=== PATIENT | male | born 1995 | race Caucasian/White ===

== ENCOUNTER 2023-11-26 17:35 | Emergency (ER) | payer OTHER ==
[~2023-11-26] VITALS: Ht 180.3 cm; Wt 72.6 kg
[2023-11-26 18:20] VITALS: BP 121/84
[2023-11-26] MEDS ORDERED: Diphth,Pertuss(Acell),Tet Vac 0.5 ML VIAL IM ONE (18:25)
[2023-11-26] MEDS ORDERED: Amoxicillin/Clavulanate K 875 MG Tab PO ONE (18:25)
[2023-11-26] MEDS ORDERED: AMOCLA875 PO (18:30)
== END 2023-11-26 18:46 | disposition home or self-care (01) ==
LOC: ER 17:35
DX: S61.451A Open bite of right hand, initial encounter (principal); W55.01XA Bitten by cat, initial encounter
CPT/HCPCS: 90471; 90715; 99283-25; A9270

== ENCOUNTER 2023-11-28 10:44 | Emergency (ER) | payer OTHER ==
[~2023-11-28] VITALS: Ht 170.2 cm; Wt 65.8 kg
[~2023-11-28 10:44] MED LIST: AMOCLA875 PO
[2023-11-28 10:55] VITALS: BP 146/85
== END 2023-11-28 11:04 | disposition home or self-care (01) ==
LOC: ER 10:44
DX: S61.451D Open bite of right hand, subsequent encounter (principal); Z02.79 Encounter for issue of other medical certificate; W55.01XD Bitten by cat, subsequent encounter
CPT/HCPCS: 99281

== ENCOUNTER 2023-12-02 15:10 | Emergency (ER) | payer OTHER ==
[~2023-12-02] VITALS: Ht 167.6 cm; Wt 84.8 kg
[2023-12-02 15:17] VITALS: BP 119/80
== END 2023-12-02 15:20 ==
LOC: ER 15:10
DX: S61.451D Open bite of right hand, subsequent encounter (principal); W55.01XD Bitten by cat, subsequent encounter
CPT/HCPCS: 99281